=== PATIENT | male | born 1960 ===

== ENCOUNTER 2025-05-25 16:11 | Emergency (ER) | payer SELFPAY ==
[2025-05-25 16:53] VITALS: BP 155/91; PULSE 90; RESP 16; TEMP 36.7; O2SAT 98
--- NOTE | 2025-05-25 18:45 | PC.NURSE ---
Mother to intake desk stating I'm going to take him home, he doesn't have a fever right now. If he has one later tonight I'll just take him to [facility]. Pt mother carried pt to exit using steady gait, pt not appearing to be in any acute distress and resting with equal chest rise and fall
--- NOTE | 2025-05-25 20:25 | ED_ITS ---
HPI - General Adult General Chief complaint: Unspecified Stated complaint: I'm running out of blood pressure medication Time Seen by Provider: 05/25/25 20:13 History of Present Illness HPI narrative: 65-year-old male with reported history of hypertension presents to the emergency department for medication refill. Patient states he is almost out of his labetalol 300 mg b.i.d. and is requesting a refill. He is also requesting a refill on his second BP medication but cannot recall if it is losartan or lisinopril. Patient is currently traveling from [place] to live with his children in [place] and states he is about to run out of his medications. He last filled his medications at [facility] in [place], [place]. He is not currently established with a PCP but plans to establish with a PCP when he arrives to [place]. He has no other complaints. Related Data Allergies Allergy/AdvReac Type Severity Reaction Status Date / Time No Known Allergies Allergy Verified 05/25/25 16:16 Review of Systems Review of Systems: All systems reviewed & are unremarkable except as noted in HPI and below Exam Narrative: GENERAL: Well-appearing, well-nourished, and in no acute distress. HEAD: Normocephalic, atraumatic. EYES: EOMI. ENT: Nares clear, no rhinorrhea or epistaxis. Mucous membranes moist. NECK: Supple. CHEST: Clear to auscultation. No respiratory distress. HEART: Regular rate and rhythm. No murmur heard. Normal peripheral pulses. ABDOMEN: Soft, nontender, nondistended, normal active bowel sounds. EXTREMITIES: Normal range of motion. No edema. SKIN: Warm, dry, no rash. NEURO: No focal deficits. Alert and oriented x3 Course Vital Signs Vital signs: Vital Signs Temperature 98.1 F 05/25/25 16:53 Pulse Rate 90 05/25/25 16:53 Respiratory Rate 16 05/25/25 16:53 Blood Pressure 155/91 H 05/25/25 16:53 Pulse Oximetry 98 05/25/25 16:53 Oxygen Delivery Room Air 05/25/25 16:53 Temperature 98.1 F 05/25/25 16:53 Pulse Rate 90 05/25/25 16:53 Respiratory Rate 16 05/25/25 16:53 Blood Pressure 155/91 H 05/25/25 16:53 Pulse Oximetry 98 05/25/25 16:53 Oxygen Delivery Room Air 05/25/25 16:53 Medical Decision Making MDM Narrative Medical decision making narrative: 65 y/o M with a hx of HTN presents to the ED for medication refill. Pt requesting refills for his labetalol. He is also requesting a refill on his second BP medication but cannot recall the name (believes it is losartan vs lisinopril). He states he is on his way to [place] to live with his children where he plans to live with his children. Patient has no complaints. I did at tempt to contact patient's pharmacy in [place] to find out what antihypertensives he is supposed to be taking, however unfortunately they are closed. I did offer to give him local primary care referral but states he will not be in the area from [facility]. Advised him to follow-up with a PCP locally at his destination. Will refill his labetalol. He was given strict ED return precautions. Discharged in stable condition. Vital Signs Vital Signs: Vital Signs Temperature 98.1 F 05/25/25 16:53 Pulse Rate 90 05/25/25 16:53 Respiratory Rate 16 05/25/25 16:53 Blood Pressure 155/91 H 05/25/25 16:53 Pulse Oximetry 98 05/25/25 16:53 Oxygen Delivery Room Air 05/25/25 16:53 Temperature 98.1 F 05/25/25 16:53 Pulse Rate 90 05/25/25 16:53 Respiratory Rate 16 05/25/25 16:53 Blood Pressure 155/91 H 05/25/25 16:53 Pulse Oximetry 98 05/25/25 16:53 Oxygen Delivery Room Air 05/25/25 16:53 Discharge Plan Discharge Clinical Impression: Encounter for medication refill Patient Disposition: Home Condition: Stable Instructions: Antibiotic Form, Hypertension (ED) Additional Instructions: Please take your medications as directed. Make sure to keep a blood pressure log. Please contact her pharmacy oral primary care provider to find out what medications you are supposed to be taking. Follow-up closely with the primary care provider at her destination. Return to the emergency department if you develop chest pain, shortness of breath or other concerning symptoms. Patient Language: Niuean Prescriptions: New labetalol 300 mg tablet 300 mg PO Q12H 30 Days Qty: 60 0RF Follow-up/Referrals: PHYSICIAN,[facility] [employer]TER [Primary Care Provider] -
== END 2025-05-25 21:09 | disposition home or self-care (01) ==
PROVIDERS: Emergency Provider Physician Assistant
DX: I10 Essential (primary) hypertension (principal); Z76.0 Encounter for issue of repeat prescription
CPT/HCPCS: 99281